=== PATIENT | female | born 1945 | race Caucasian/White ===

== ENCOUNTER 2018-12-03 16:05 | Inpatient (IN) | payer MEDICARE, BC ==
[~2018-12-03] VITALS: Ht 165.1 cm; Wt 82.8 kg
[2019-01-06] VITALS (12 sets, daily range): BP systolic 146–188; BP diastolic 43–60; PULSE 50–78; TEMP 97.5–98.8
--- NOTE | 2019-01-06 | NUR ---
Patient in bed, resting. Denies pain. +2 swelling noted in BUE. +2-3 swelling noted in BLE. BLE also noted to be reddened, and warm. Patient states, her legs are tender, but not painful. Lasix po given per order, IVF stopped d/t increased swelling, and HTN. Order to INT IVF. Denies further needs at this time. Will continue to monitor.
--- NOTE | 2019-01-06 06:30 | NUR ---
The patient was brought back via wheelchair to [facility] at this time. The patient transferred from the wheelchair to the cart in the room with the assistance of one nurse and appeared to tolerate the activity well. Vital signs were obtained. Consent signed. 18G IV started in left wrist with one stick, NS infusing without difficulty. Blood obtained from IV start to check blood sugar with a result of 252. Heart Reg. Lungs clear. Bowel sounds audible. Call light is within reach. The patient's son, Tong, was brought back to be at her bedside. The patient denies any needs at this time. Will continue to monitor the patient.
[2019-01-06] MEDS ORDERED: NORVASC 10MG10 MG PO (06:34)
[2019-01-06] MEDS ORDERED: CELEXA40 MG PO (06:34)
[2019-01-06] MEDS ORDERED: CATAPRES0.3 MG PO (06:34)
[2019-01-06] MEDS ORDERED: LASIX 20MG TABL20 MG PO (06:35)
[2019-01-06] MEDS ORDERED: SINGULAIR 110 MG/TAB PO (06:35)
[2019-01-06] MEDS ORDERED: LIPITOR20 MG PO (06:36)
[2019-01-06] MEDS ORDERED: GLUCOPHAGE500 MG/TAB PO (06:36)
[2019-01-06] MEDS ORDERED: ALDACTONE 25MG25 M1 PO (06:36)
[2019-01-06] MEDS ORDERED: TOPROL XL100 MG PO (06:37)
[2019-01-06] MEDS ORDERED: KLONOPIN 0.5MG0.5 MG PO (06:38)
[2019-01-06] MEDS ORDERED: PROTONIX 40MG T40 MG PO (06:38)
--- NOTE | 2019-01-06 15:20 | NUR ---
PATIENT ARRIVED FROM PACU AT 1445. PATIENT IS SOMEWHAT ALERT AND ORIENTED. PATIENT HEART RATE DID JUMP DOWN TO THE 30'S AND FLUCTUATING. PHONE CALL TO DR. FLEMING. PATIENT IS NOW ON TELE AND NEED TO HOLD TOPOROL THIS EVENING. PATIENT LUNG SOUNDS NORMAL. PATIENT HAS IV IN LEFT ARM WITH NS RUNNING AT 75. PATIENT DOES C/O NAUSEA. PATIENT DENIES PAIN. PATIENT HAS 5 LAP SITES AND 1 LARGER SITE LOCATED MIDLINE OF ABDOMEN. SITES ARE CLEAN DRY AND INTACT COVERED WITH SWIFTSET. PATIENT DOES HAVE CLARKE IN WITH, URINE IS CLEAR GREEN DUE TO GREEN DYE GIVEN BY DR. ZULETA DUE TO CYSTO. PATIENT IS CURRENTLY RESTING IN BED. SCD'S ON. CALL LIGHT WITHIN REACH. WILL CONTINUE TO MONITOR
--- NOTE | 2019-01-06 17:06 | NUR ---
PATIENT RESTING IN BED. PATIENT DENIES PAIN AT THIS TIME AND STATES HER NAUSEA HAS GOTTEN BETTER. PATIENT HAS REFUSED TO DRINK ANYTHING. PATIENT HAS HAD MINIMAL URINE OUTPUT, ABOUT 30ML AND IS CLEAR GREEN. PATIENT HEART RATE STABLE AFTER BEING PLACED ON TELE. PATIENT CALL LIGHT WITHIN REACH, WILL CONTINUE TO MONITOR
--- NOTE | 2019-01-07 03:38 | NUR ---
Patient in bed, resting. Denies pain. Bilateral hands still noted to be swollen, +2. Patient having a hard time grasping water cup d/t swelling. BUE elevated on pillows, will continue to monitor.
[2019-01-07 04:18] VITALS: BP 135/41; PULSE 57; TEMP 98.1
--- NOTE | 2019-01-07 04:45 | NUR ---
Patient up in peter with PAINT MIXER, walker, and gait belt. Patient very shaky and weak. Transferred to a w/c and wheeled back to her room. Requesting to go back to bed. Patient assisted to bed with assist x2. States, she is "uncomfortable" but does not want pain meds. Denies further needs at this time. Will continue to monitor.
[2019-01-07 06:42] LABS: BASO % 0.3 % (0.0-2.0); EOS % 0.2 % (0-4.0); GRAN # 8.7 (1.4-6.5); GRAN % 81.2 % (42.2-75.2); HEMOGLOBIN 10.3 g/dl (12.5-16.0); LYMPH # 1.3 (1.2-3.4); LYMPH % 12.3 % (20.0-51.0); MEAN CELL VOLUME 88 fl (80.0-100.0); MEAN CORPUSCULAR HEMOGLOBIN 28 pg (27.0-31.0); MEAN CORPUSCULAR HGB CONC 32 g/dl (33.0-37.0); MEAN PLATELET VOLUME 10.3 fl (7.4-10.4); MONO # 0.6 (0.1-0.6); MONO % 5.6 % (1.7-9.3); PLATELET COUNT 298 K/mm3 (130-400); RED BLOOD COUNT 3.64 M/mm3 (4.10-5.30); REDCELL DISTRIBUTION WIDTH-CV 15.3 % (11.5-14.5)
[2019-01-07 06:44] LABS: HEMATOCRIT 31.9 % (37.0-47.0)
[2019-01-07 06:51] LABS: CALCIUM 8.9 mg/dL (8.4-10.2); CREATININE, serum 0.88 (0.52-1.25); MAGNESIUM 1.6 mg/dL (1.6-2.3); PHOSPHOROUS 3.8 mg/dL (2.5-4.5); POTASSIUM 3.8 mmol/L (3.4-5.0)
[2019-01-07 08:00] VITALS: BP 138/50; PULSE 76; TEMP 97.8
--- NOTE | 2019-01-07 08:39 | NUR ---
PATIENT ASSESSMENT COMPLETED. PATIENT HERE WITH DX OF ROBOTIC SIGMOIDECTOMY. PATIENT ALERT AND ORIENTED AND VSS. PATIENT ON CLEAR LIQUID DIET. PATIENT ORDERED CHICKEN BROTH FOR BREAKFAST AND TOLERATED IT WELL. PATIENT HAS 6 LAP SITES WITH SWIFTSET, ALL CLEAN DRY AND INTACT. PATIENT HEART AND LUNG SOUNDS NORMAL. PATIENT DOES HAVE SOME BILATERAL HAND EDEMA, 2+. DR. FLEMING NOTIFIED. PATIENT DOES HAVE HISTORY OF CHF. PATIENT HAS CLARKE WITH CLEAR, YELLOW URINE. PATIENT DENIES PAIN AT THIS TIME. CALL LIGHT WITHIN REACH, WILL CONTINUE TO MONITOR
--- NOTE | 2019-01-07 10:37 | NUR ---
First visit from the engineering lab technician. No needs right now.
[2019-01-07 12:06] VITALS: BP 135/43; PULSE 49; TEMP 99
--- NOTE | 2019-01-07 13:25 | NUR ---
Patient in bed when program writer arrived. Plesant with no complaints of pain at this time. Oxygen in place with no reports of shortness of breath, 02 sats 99%. Patients heart rate deminished, program writer encouraged ambulation to which pt agrees. Patient up in room and abulated around room and back to bedide chair. Up in chair for meal. Tolerating activity well and reports no pain currently. Visitor in room with patient currently. Patient conversating and confirms no needs at this time. Magnesium infusion via IV. Report to primary given.
--- NOTE | 2019-01-07 14:15 | NUR ---
PATIENT RESTING IN CHAIR. SWELLING IN BOTH HANDS HAS DECREASED. PATIENT DOING A LOT BETTER THAN YESTERDAY. PATIENT MORE ALERT, AND HEART RATE HAS STABILIZED. PATIENT AMBULATED IN [place] FOR A LITTLE BIT. PATIENT DENIES PAIN AT THIS TIME.
--- NOTE | 2019-01-07 14:56 | NUR ---
SW met with patient to discuss discharge planning. Patient lives independently at home alone but reports her son lives a block away and will help after discharge. Patient's PCP is Dr Munoz in [place] and she obtains prescriptions from [facility] in [place]. Patient reports she has a walker but does not use it often. Patient reports she has used home health in the past but does not currently have those services. Patient does not have any concerns returning home at this time. SW will continue to follow and assist with discharge needs.
[2019-01-07 15:51] VITALS: BP 167/52; PULSE 56; TEMP 98.6
[2019-01-07 19:25] VITALS: BP 188/55; PULSE 64; TEMP 98.5
--- NOTE | 2019-01-07 20:15 | NUR ---
Patient in chair, awake. States, she is uncomfortable, but does not want pain meds. Scheduled tylenol given. Medications taken with applesauce. Tolerated well. BP 188/95, scheduled BP meds given. Will recheck. Denies further needs at this time. Will continue to monitor.
[2019-01-07 23:59] VITALS: BP 136/47; PULSE 49; TEMP 97.5
[2019-01-08] VITALS (7 sets, daily range): BP systolic 148–207; BP diastolic 45–72; PULSE 49–66; TEMP 97.6–98.9
[2019-01-08 06:58] LABS: BASO % 0.3 % (0.0-2.0); EOS # 0.1 (0.0-0.7); EOS % 1.2 % (0-4.0); GRAN # 9.6 (1.4-6.5); GRAN % 84.3 % (42.2-75.2); HEMOGLOBIN 10.7 g/dl (12.5-16.0); LYMPH # 1.1 (1.2-3.4); LYMPH % 9.4 % (20.0-51.0); MEAN CELL VOLUME 89 fl (80.0-100.0); MEAN CORPUSCULAR HEMOGLOBIN 28 pg (27.0-31.0); MEAN CORPUSCULAR HGB CONC 32 g/dl (33.0-37.0); MEAN PLATELET VOLUME 10.2 fl (7.4-10.4); MONO # 0.5 (0.1-0.6); MONO % 4.5 % (1.7-9.3); PLATELET COUNT 293 K/mm3 (130-400); RED BLOOD COUNT 3.78 M/mm3 (4.10-5.30); REDCELL DISTRIBUTION WIDTH-CV 15.4 % (11.5-14.5)
[2019-01-08 07:04] LABS: HEMATOCRIT 33.7 % (37.0-47.0)
[2019-01-08 07:05] LABS: ALBUMIN 3.5 gm/dL (3.5-5.0); BILIRUBIN,TOTAL 0.4 mg/dL (0.0-1.0); CALCIUM 9.5 mg/dL (8.4-10.2); CREATININE, serum 0.78 (0.52-1.25); MAGNESIUM 1.8 mg/dL (1.6-2.3); POTASSIUM 3.8 mmol/L (3.4-5.0); TOTAL PROTEIN 6.9 gm/dL (6.4-8.2)
--- NOTE | 2019-01-08 09:00 | NUR ---
Patient alert and oriented, requested to get up to chair. Two to one assist with gait belt used, but minimal assistance was needed. Patient has 6 lap sites on abdomen, clean, dry, intact. Bowel sounds are present in all four quadrants, but patient stated she has not yet passed gas. Garay cathetar is present at this time.
[2019-01-08] MEDS ORDERED: ULTRAM 50MG TAB50 MG PO (10:21)
[2019-01-08] MEDS ORDERED: ROXICODONE 55 MG/TAB PO (10:21)
[2019-01-08] MEDS ORDERED: NEURONTIN100 MG/CAP PO (10:22)
[2019-01-08] MEDS ORDERED: COLACE 100100 MG/CAP PO (10:22)
--- NOTE | 2019-01-08 18:35 | NUR ---
73 y/o F sitting bedside. Pain 3 on a 0-10 scale, walked in hallway with gait belt, had small BM at 5pm and 6:30pm. No new complaints, had many visitors today, Report off to Aurea GOLDMAN
--- NOTE | 2019-01-08 19:50 | NUR ---
Shift assessment complete. Pt resting in bedside recliner, awake, a&o, cooperative c cares. 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 Pt denies other c/o. INT patent. Tanisha avila DD. Tele in place. Pt denies further needs at this time. Call light in reach, will continue to monitor.
[2019-01-09 03:59] VITALS: BP 152/48; PULSE 50; TEMP 98.3
[2019-01-09 08:00] VITALS: BP 168/68; PULSE 64; TEMP 98.6
[2019-01-09 12:00] VITALS: BP 147/46; PULSE 50; TEMP 98.2
[2019-01-09 16:00] VITALS: BP 155/52; PULSE 56; TEMP 98.3
--- NOTE | 2019-01-09 18:00 | NUR ---
No complaints. Sat up in recliner chair all shift. Ambulated in halls with staff. States having gas and loose stools. Garay catheter draining clear yellow urine.
[2019-01-09 20:58] VITALS: BP 187/43; PULSE 66; TEMP 98
--- NOTE | 2019-01-09 21:30 | NUR ---
PT AMBULATED IN [place], GAIT STEADY. TYLENOL FOR PAIN.
[2019-01-09 23:13] VITALS: BP 167/50; PULSE 58; TEMP 97.8
[2019-01-10 03:24] VITALS: BP 163/50; PULSE 50; TEMP 98.1
--- NOTE | 2019-01-10 06:25 | NUR ---
RESTING QUIETLY. NO c/o PAIN AT REST.
[2019-01-10 07:03] LABS: BASO % 0.3 % (0.0-2.0); EOS # 0.2 (0.0-0.7); EOS % 2.3 % (0-4.0); GRAN # 6.5 (1.4-6.5); LYMPH # 1.6 (1.2-3.4); LYMPH % 18.3 % (20.0-51.0); MEAN CELL VOLUME 88 fl (80.0-100.0); MEAN CORPUSCULAR HGB CONC 32 g/dl (33.0-37.0); MEAN PLATELET VOLUME 10.1 fl (7.4-10.4); MONO # 0.6 (0.1-0.6); MONO % 6.5 % (1.7-9.3); PLATELET COUNT 331 K/mm3 (130-400); RED BLOOD COUNT 3.45 M/mm3 (4.10-5.30); REDCELL DISTRIBUTION WIDTH-CV 15.2 % (11.5-14.5)
[2019-01-10 07:12] LABS: HEMATOCRIT 30.3 % (37.0-47.0); HEMOGLOBIN 9.7 g/dl (12.5-16.0); MEAN CORPUSCULAR HEMOGLOBIN 28 pg (27.0-31.0)
[2019-01-10 07:16] LABS: ALBUMIN 3.2 gm/dL (3.5-5.0); CALCIUM 9.4 mg/dL (8.4-10.2); CREATININE, serum 0.69 (0.52-1.25); MAGNESIUM 1.4 mg/dL (1.6-2.3); PHOSPHOROUS 3.9 mg/dL (2.5-4.5); POTASSIUM 3.7 mmol/L (3.4-5.0)
[2019-01-10 07:34] VITALS: BP 204/70; PULSE 56; TEMP 97.9
[2019-01-10 09:10] VITALS: BP 154/60
[2019-01-10 13:34] VITALS: BP 166/51; PULSE 56; TEMP 98
[2019-01-10 16:00] VITALS: BP 185/55; PULSE 69; TEMP 97.8
--- NOTE | 2019-01-10 18:00 | NUR ---
Stated abdominal discomfort is getting better every day. Blood pressure medication changes explained. Ambulatory with walker and standby assist. Garay draining large amounts clear yellow urine.
[2019-01-10 20:16] VITALS: BP 212/51; PULSE 82; TEMP 98.5
[2019-01-11] VITALS (10 sets, daily range): BP systolic 137–181; BP diastolic 46–68; PULSE 56–80; TEMP 97.6–98.3
[2019-01-11 06:27] LABS: BASO % 0.3 % (0.0-2.0); EOS # 0.2 (0.0-0.7); EOS % 2.2 % (0-4.0); GRAN # 6.1 (1.4-6.5); GRAN % 66.5 % (42.2-75.2); LYMPH # 2.1 (1.2-3.4); LYMPH % 22.8 % (20.0-51.0); MEAN CELL VOLUME 87 fl (80.0-100.0); MEAN CORPUSCULAR HGB CONC 32 g/dl (33.0-37.0); MEAN PLATELET VOLUME 9.9 fl (7.4-10.4); MONO # 0.7 (0.1-0.6); MONO % 7.4 % (1.7-9.3); PLATELET COUNT 343 K/mm3 (130-400); REDCELL DISTRIBUTION WIDTH-CV 14.9 % (11.5-14.5)
[2019-01-11 06:32] LABS: HEMATOCRIT 30.6 % (37.0-47.0); HEMOGLOBIN 9.8 g/dl (12.5-16.0); MEAN CORPUSCULAR HEMOGLOBIN 28 pg (27.0-31.0)
[2019-01-11 06:40] LABS: ALBUMIN 3.3 gm/dL (3.5-5.0); CALCIUM 9.6 mg/dL (8.4-10.2); CREATININE, serum 0.62 (0.52-1.25); MAGNESIUM 1.5 mg/dL (1.6-2.3); PHOSPHOROUS 4.4 mg/dL (2.5-4.5); POTASSIUM 3.8 mmol/L (3.4-5.0)
--- NOTE | 2019-01-11 10:39 | NUR ---
LUCIUS met with the patient to follow up about home health service. SW provided a list of agencies that serve the [facility] from Medicare.gov. The patient has had Home Health & Hospice from [facility] in the past. SW sent referral. vp client services will contiue to follow to ensure safe discharge.
--- NOTE | 2019-01-11 10:58 | NUR ---
Etelvina from the home health agency reports they did receive the referral. SW awaiting response. resident services supervisor will continue to follow to ensure safe discharge.
--- NOTE | 2019-01-11 11:05 | NUR ---
Sitting in chair with legs elevated. Catheter continues to drain clear yellow urine. Denies pain, jsut has some abd discomfort when she coughs. Patient says that she feels like she has gas but has not had a bowel movement at this time. Patient denies any further needs.
--- NOTE | 2019-01-11 14:58 | NUR ---
Patient sitting up in chair. Denies pain. Patient says that she does not understand how much she is able to drink in fluids per day. Reviewed Dr. Bah's notes dated 10 Jan 2019 and it was specified 1500mL. Patient informed and showed patient using the water jug in her room that per day she is allowed one and a half jugs. Patient says that she understands now. Patient denies further needs or concerns at this time.
--- NOTE | 2019-01-11 15:33 | NUR ---
Order received for fleming catheter dc. Explained to patient the order and procedure. 8mL of saline removed from balloon. Catheter removed without difficulty. Brief provided to patient per her request. Explained that we will place a basin in her toilet to measure the amount of urine she is having. Patient verbalizes understanding and denies further needs.
--- NOTE | 2019-01-11 16:04 | NUR ---
BP elevated. Repeat BP was 173/54. Spoke with Dr. Bah and we will administer the patient's dose of Coreg now, instead of at 1700. Dr. Bah says to recheck to make sure that the BP is coming down.
--- NOTE | 2019-01-11 20:45 | NUR ---
Pt. sitting up in chair at this time. Pt. is A&OX3, assessment complete. INT to rt. hand patent. Pt. denies pain or other needs at this time. Call light within reach.
[2019-01-12 00:23] VITALS: BP 185/53; PULSE 74; TEMP 98.3
[2019-01-12 05:05] VITALS: BP 182/54; PULSE 89; TEMP 98.7
--- NOTE | 2019-01-12 06:40 | NUR ---
appears to be sleeping, awakens easily, bedside shift report received from SUSI Perez
[2019-01-12 06:42] LABS: BASO # 0.1 (0.0-0.2); BASO % 0.5 % (0.0-2.0); EOS # 0.2 (0.0-0.7); EOS % 1.7 % (0-4.0); GRAN # 6.9 (1.4-6.5); GRAN % 66.3 % (42.2-75.2); HEMOGLOBIN 10.1 g/dl (12.5-16.0); LYMPH # 2.4 (1.2-3.4); MEAN CELL VOLUME 87 fl (80.0-100.0); MEAN CORPUSCULAR HEMOGLOBIN 28 pg (27.0-31.0); MEAN CORPUSCULAR HGB CONC 32 g/dl (33.0-37.0); MEAN PLATELET VOLUME 9.6 fl (7.4-10.4); MONO # 0.8 (0.1-0.6); MONO % 7.6 % (1.7-9.3); PLATELET COUNT 389 K/mm3 (130-400); RED BLOOD COUNT 3.65 M/mm3 (4.10-5.30); REDCELL DISTRIBUTION WIDTH-CV 14.9 % (11.5-14.5)
[2019-01-12 06:53] LABS: CALCIUM 9.7 mg/dL (8.4-10.2); CREATININE, serum 0.73 (0.52-1.25); MAGNESIUM 1.6 mg/dL (1.6-2.3); POTASSIUM 3.9 mmol/L (3.4-5.0)
[2019-01-12 07:23] LABS: HEMATOCRIT 31.7 % (37.0-47.0)
--- NOTE | 2019-01-12 07:50 | NUR ---
appears to be sleeping, in bed with lights off, eyes closed, resp quiet and easy
[2019-01-12 08:06] VITALS: BP 183/67; PULSE 69; TEMP 98
--- NOTE | 2019-01-12 09:10 | NUR ---
Dr Bah in to see patient, then Dr Lindquist and care team in to see patient
[2019-01-12] MEDS ORDERED: COREG 3.123.125 MG/T PO (10:44)
[2019-01-12] MEDS ORDERED: COZAAR 50MG50 MG/TAB PO (10:44)
--- NOTE | 2019-01-12 10:45 | NUR ---
has worked with physical therapy and now resting in chair, full assessment completed, see interventions for further info, denies needs
[2019-01-12 11:58] VITALS: BP 140/34; PULSE 59; TEMP 98.4
--- NOTE | 2019-01-12 12:31 | NUR ---
resting in chair, will order lunch soon
--- NOTE | 2019-01-12 14:20 | NUR ---
SHAKER TENDER in to assist her with getting ready for discharge
--- NOTE | 2019-01-12 14:50 | NUR ---
discharge instructions given to patient and her son,
--- NOTE | 2019-01-12 15:00 | NUR ---
discharged per WC
== END 2019-01-12 15:00 | disposition home or self-care (01) | DRG 674 ==
LOC: INPTSU 01-06 05:23 → SURG 01-06 07:30
PROVIDERS: Physician Assistant; Urology; ADMIT Surgery
PROC: 0DQN4ZZ Repair Sigmoid Colon, Percutaneous Endoscopic Approach (ICD-10-PCS; 2019-01-06)
PROC: 0DNN4ZZ Release Sigmoid Colon, Percutaneous Endoscopic Approach (ICD-10-PCS; 2019-01-06)
PROC: 0DJD8ZZ Inspection of Lower Intestinal Tract, Via Natural or Artificial Opening Endoscopic (ICD-10-PCS; 2019-01-06)
PROC: 4A1BXSH Monitoring of Gastrointestinal Vascular Perfusion using Indocyanine Green Dye, External Approach (ICD-10-PCS; 2019-01-06)
PROC: 0DTN4ZZ Resection of Sigmoid Colon, Percutaneous Endoscopic Approach (ICD-10-PCS; principal; 2019-01-06 07:30)
PROC: 0DNB4ZZ Release Ileum, Percutaneous Endoscopic Approach (ICD-10-PCS; 2019-01-06 07:30)
DX: N32.1 Vesicointestinal fistula (principal); E87.1 Hypo-osmolality and hyponatremia; F32.9 Major depressive disorder, single episode, unspecified; F41.9 Anxiety disorder, unspecified; E11.9 Type 2 diabetes mellitus without complications; E78.5 Hyperlipidemia, unspecified; I11.0 Hypertensive heart disease with heart failure; R00.1 Bradycardia, unspecified; I50.9 Heart failure, unspecified; E83.42 Hypomagnesemia; K21.9 Gastro-esophageal reflux disease without esophagitis; D64.9 Anemia, unspecified; R53.81 Other malaise; Z79.84 Long term (current) use of oral hypoglycemic drugs; Z90.710 Acquired absence of both cervix and uterus; Z88.6 Allergy status to analgesic agent; Z88.2 Allergy status to sulfonamides
CPT/HCPCS: 99223; 99231-AI; 99232-AI; 99233-AI; A4314; A9284; J0360; J0461; J0690; J1650; J1815; J2175; J2250; J2405; J2550; J2704; J2795; J3010; J3475; J7030; J7120; Q9967